=== PATIENT | male | born 1985 | race Hispanic/Latino ===

== ENCOUNTER 2019-08-26 22:44 | Emergency (ER) | payer OTHER ==
[2019-08-26] MEDS ORDERED: Lidocaine Viscous Sol 2% 15 ml UD Cup ONE (22:57)
== END 2019-08-26 23:20 | disposition home or self-care (01) ==
LOC: BURERS 22:44
DX: T16.1XXA Foreign body in right ear, initial encounter (principal)
CPT/HCPCS: 69200